=== PATIENT | male | born 1990 | race Caucasian/White ===

== ENCOUNTER 2019-04-05 22:30 | Emergency (ER) | payer MEDICAID ==
[~2019-04-05] VITALS: Ht 180.3 cm; Wt 113.4 kg
[2019-04-05 22:52] VITALS: BP_SYST 113
--- NOTE | 2019-04-05 22:58 | NUR ---
Patient triaged and placed in waiting room. VSS and patient appears in no acute distress at this time. Accompanied by self, awaiting available bed, and MD notified of need for MSE.
--- NOTE | 2019-04-06 01:10 | NUR ---
Patient to ER [facility]1 to gon for evaluation. Side rails up.
--- NOTE | 2019-04-06 01:30 | NUR ---
Pt BIB family to ED C/O flu like symptoms associated with body aches, vomiting, diarrhea, dry cough, weakness for the last three days. Body aches are mild in nature. No alleviating or exacerbating factors VSS no s/s of acute distress Resting on gurney rails up
--- NOTE | 2019-04-06 01:40 | NUR ---
ER Dr. Ybarra at bedside examining patient.
[2019-04-06 02:00] VITALS: BP_SYST 113
[2019-04-06] MEDS ORDERED: OSELTAMIVIR PHOSPHATE 75 MG CAPSULE PO ONE (02:00)
--- NOTE | 2019-04-06 02:00 | NUR ---
Patient given written and verbal discharge instructions and verbalizes understanding. ER MD discussed with patient the results and treatment provided. Patient in stable condition. ID arm band removed. Rx of Tamiflu given. Patient educated on pain management and to follow up with PMD. Pain Scale 0/10 Opportunity for questions provided and answered. Medication side effect fact sheet provided.
== END 2019-04-06 02:00 | disposition home or self-care (01) ==
LOC: SED 22:30
DX: J11.1 Influenza due to unidentified influenza virus with other respiratory manifestations (principal)
CPT/HCPCS: 86710; 99283; G9035; 36415

== ENCOUNTER 2020-09-02 09:04 | Emergency (ER) | payer MEDICAID ==
[~2020-09-02] VITALS: Ht 180.3 cm; Wt 108.9 kg
[2020-09-02 09:17] VITALS: BP_SYST 168
[2020-09-02 12:13] VITALS: BP_SYST 136
== END 2020-09-02 12:13 | disposition home or self-care (01) ==
LOC: SED 09:04
DX: M71.22 Synovial cyst of popliteal space [Baker], left knee (principal); M71.21 Synovial cyst of popliteal space [Baker], right knee; I10 Essential (primary) hypertension
CPT/HCPCS: 99284

== ENCOUNTER 2021-02-11 22:32 | Emergency (ER) | payer MEDICAID ==
[~2021-02-11] VITALS: Ht 175.3 cm; Wt 72.6 kg
[2021-02-11 22:40] VITALS: BP_SYST 134
[2021-02-12 00:28] VITALS: BP_SYST 129
== END 2021-02-12 00:28 | disposition home or self-care (01) ==
LOC: SED 22:32
DX: R10.30 Lower abdominal pain, unspecified (principal); R11.2 Nausea with vomiting, unspecified; Z88.5 Allergy status to narcotic agent
CPT/HCPCS: 99281

== ENCOUNTER 2021-06-14 17:13 | Emergency (ER) | payer MEDICAID ==
[~2021-06-14] VITALS: Ht 182.9 cm; Wt 90.7 kg
[2021-06-14 17:45] VITALS: BP_SYST 122
[2021-06-14 18:59] VITALS: BP_SYST 122
== END 2021-06-14 18:59 | disposition home or self-care (01) ==
LOC: SED 17:13
DX: M71.22 Synovial cyst of popliteal space [Baker], left knee (principal)
CPT/HCPCS: 93971; 99284

== ENCOUNTER → 2021-11-02 | Emergency (ER) | payer MEDICAID ==
[~2021-11-02] VITALS: Ht 180.3 cm; Wt 92.5 kg
[2021-11-02 11:00] VITALS: BP_SYST 106
== END | disposition home or self-care (01) ==
LOC: SED 10:58
DX: F32.9 Major depressive disorder, single episode, unspecified (principal); Z79.899 Other long term (current) drug therapy
CPT/HCPCS: 99281

== ENCOUNTER 2021-11-19 11:09 | Emergency (ER) | payer MEDICAID ==
[~2021-11-19] VITALS: Ht 180.3 cm; Wt 90.7 kg
[2021-11-19 11:15] VITALS: BP_SYST 127
--- NOTE | 2021-11-19 11:15 | NUR ---
Patient triaged and placed in waiting room. VSS and patient appears in no acute distress at this time. Accompanied by SELF, awaiting available bed, and MD notified of need for MSE.
--- NOTE | 2021-11-19 12:00 | NUR ---
Patient to ER bed H1 to gown for evaluation. Side rails up.
--- NOTE | 2021-11-19 12:02 | NUR ---
ER DR. JASSO EXAMINING PT
[2021-11-19] MEDS ORDERED: CORTEARS RIGHT EAR (12:07)
[2021-11-19 12:32] VITALS: BP_SYST 127
--- NOTE | 2021-11-19 12:33 | NUR ---
Patient given written and verbal discharge instructions and verbalizes understanding. ER MD discussed with patient the results and treatment provided. Patient in stable condition. ID arm band removed. Rx of EARDROPS (SEE EMR) given. Patient educated on pain management and to follow up with PMD. Pain Scale 0/10. Opportunity for questions provided and answered. Medication side effect fact sheet provided.
== END 2021-11-19 12:32 | disposition home or self-care (01) ==
LOC: SED 11:09
DX: H60.501 Unspecified acute noninfective otitis externa, right ear (principal); H92.01 Otalgia, right ear; Z88.6 Allergy status to analgesic agent; Z79.899 Other long term (current) drug therapy
CPT/HCPCS: 99283